=== PATIENT | male | born 1945 | race Caucasian/White ===

== ENCOUNTER 2022-07-22 07:50 | Outpatient (CLI) | payer OTHER, SELFPAY ==
[2022-07-22] MEDS: Albuterol HFA 18 GM 200 PUFF INH IH (14:04)
[2022-07-22] MEDS: Inhaler, Assist Device 1 EACH MC (14:04)
--- NOTE | 2022-07-23 13:36 | W.PFT ---
Date of service: 07/22/22 Time of Service: 13:05 Pulmonary Function Test Result Requesting Provider Maria Esther Domínguez Indications: COPD Interpretation Spirometry: There is no airflow limitation. There is no significant bronchodilator response. Lung Volumes: Normal lung volumes Diffusion Capacity: Decreased diffusion Airway Pressure: Normal airways resistance. Impression Isolated decreased diffusion. This could represent emphysema, interstitial lung disease, or pulmonary vascular disease such as pulmonary hypertension. Clinical Correlation therefore is recommended.
== END 2022-07-22 07:51 | disposition home or self-care (01) ==
LOC: RT 08:00
PROVIDERS: Visit Provider Nurse Practitioner Family
DX: R94.2 Abnormal results of pulmonary function studies (principal); J44.9 Chronic obstructive pulmonary disease, unspecified; R06.09 Other forms of dyspnea; R05.9 Cough, unspecified; Z87.891 Personal history of nicotine dependence
CPT/HCPCS: 94060; 94726; 94729

== ENCOUNTER 2022-12-04 17:59 | Outpatient (REF) | payer OTHER, SELFPAY ==
[2022-12-04 19:34] LABS: Hemoglobin A1C 5.5 % (<5.7)
[2022-12-04 19:43] LABS: ALT 6 U/L (16-63); AST 34 U/L (15-37); Albumin 2.7 g/dL (3.4-5.0); Alkaline Phosphatase 70 U/L (46-116); Anion Gap 9.9 mmol/L (3-11); BUN 23 mg/dL (7-18); Bilirubin, Total 0.9 mg/dL (0.2-1.0); CO2 23.1 mmol/L (21.0-32.0); CREATININE 1.4 mg/dL (0.70-1.30); Calcium 9.9 mg/dL (8.5-10.1); Calculated LDL 101 mg/dL (<100); Chloride 102 mmol/L (98-107); Cholesterol 156 mg/dL (<200); Estimated GFR 51.77 (mL/min/1.73m2); Glucose 110 mg/dL (74-106); HDL Cholesterol 28 mg/dL (40-60); Potassium 4.8 mmol/L (3.5-5.1); Sodium 135 mmol/L (136-145); TSH (W/Ref FT4) 11.67 uIU/mL (0.36-3.74); Triglyceride 136 mg/dL (<150)
[2022-12-04 19:58] LABS: Vitamin D 25 Total 79.1 ng/mL (30-100)
[2022-12-04 20:02] LABS: FREE T4 1.38 ng/dL (0.76-1.46)
== END 2022-12-04 18:00 | disposition home or self-care (01) ==
LOC: NCHCN 17:59
PROVIDERS: PCP Nurse Practitioner Family; Visit Provider Nurse Practitioner Family
DX: E55.9 Vitamin D deficiency, unspecified (principal); J44.9 Chronic obstructive pulmonary disease, unspecified; R79.89 Other specified abnormal findings of blood chemistry; R94.6 Abnormal results of thyroid function studies
CPT/HCPCS: 80053; 80061; 82306; 83036; 84439; 84443